=== PATIENT | female | born 1955 | race Caucasian/White ===

== ENCOUNTER → 2019-01-30 09:45 | Outpatient (CLI) | payer BC, SELFPAY ==
[2019-01-30 11:05] LABS: Add Manual Diff / Slide Review NO; Basophils Absolute Auto 0 /uL (0-100); Basophils Percent Auto 0.5 % (0-2); Eosinophils Absolute Auto 200 /uL (0-450); Hematocrit 39.4 % (36-46); Hemoglobin 13.3 g/dL (12.0-16.0); Lymphocytes Absolute Auto 1500 /uL (1100-4500); Mean Corpuscular HGB Conc 33.9 % (30-36); Mean Corpuscular Hemoglobin 27.8 PG (26-34); Mean Corpuscular Volume 82.1 fL (80-100); Monocytes Absolute Auto 400 /uL (0-900); Monocytes Percent Auto 9.5 % (3-14); Neutrophils Absolute Auto 2400 /uL (1500-7000); Platelet Count 210 X10^3/uL (150-400); Red Blood Cell Count 4.79 X10^6/uL (4.0-5.2); Red Cell Distribution Width 13.1 % (11.6-14.8); White Blood Cell Count 4.6 X10^3/uL (4.5-11.0)
[2019-01-30 11:13] LABS: Hemoglobin A1C% w Est Avg Glu 6.4 % (4.0-6.0)
[2019-01-30 11:34] LABS: Alanine Aminotransferase 25 IU/L (<35); Albumin 4.1 g/dL (3.5-5.0); Albumin Globulin Ratio 1.5 (1.0-2.8); Alkaline Phosphatase 82 U/L (38-126); Aspartate Aminotransferase 27 IU/L (14-36); BUN Creatinine Ratio 28.3 (6-22); Bilirubin Total 0.4 mg/dL (0.2-1.3); Blood Urea Nitrogen 17 mg/dL (7-17); Calcium 9.9 mg/dL (8.4-10.2); Carbon Dioxide 32 mmol/L (22-32); Chloride 102 mmol/L (98-107); Cholesterol 198 mg/dL (140-199); Estimated Glomerular Filt Rate > 60.0 mL/min (>60); Globulin 2.8 g/dL (1.7-4.1); Glucose 172 mg/dL (80-110); HDL Cholesterol 72 mg/dL (40-60); HEMOLYSIS < 15 (0-50); LDL Cholesterol Calculated 109 mg/dL (<100); Potassium 4.6 mmol/L (3.4-5.1); Sodium 139 mmol/L (137-145); Total Protein 6.9 g/dL (6.3-8.2); Triglycerides 83 mg/dL (35-150)
[2019-01-30 12:08] LABS: Thyroid Stimulating Hormone 0.97 uIU/mL (0.47-4.68)
[2019-01-30 12:18] LABS: Creatinine Urine Random 97.5 mg/dL
[2019-01-30 12:25] LABS: Microalbumi Creatinin Ratio Ur 23.5 ug/mg CR (<30); Microalbumin Urine Random 2.3 mg/dL (0-1.6)
== END ==
PROVIDERS: PCP Family Medicine; Visit Provider Family Medicine
DX: E11.65 Type 2 diabetes mellitus with hyperglycemia (principal); Z79.4 Long term (current) use of insulin; I10 Essential (primary) hypertension; F34.0 Cyclothymic disorder
CPT/HCPCS: 36415; 80053; 80061; 82043; 82570; 83036; 84443; 85025